=== PATIENT | female | born 1990 | race Caucasian/White ===

== ENCOUNTER 2017-03-12 12:00 | Emergency (ER) | payer SELFPAY ==
[2017-03-12 14:28] VITALS: BP 133/94
--- NOTE | 2017-03-12 14:29 | UC ---
Anderson Tuttle Angela, scribed for Jenifer Hale MD on 03/12/17 at 1404 . Throat Pain/Nasal Sloan HPI - HPI Summary HPI Summary: This pt is a 26 y/o female presenting to [facility] c/o sore throat for the last 2 -3 days. Hurts to swallow, hurts to speak. No sign fever / chills. No rash. No cough / sob. No GI issues reported. No known sick contacts. - History of Current Complaint Chief Complaint: UCRespiratory Stated Complaint: SORE THROAT Time Seen by Provider: 03/12/17 13:58 Hx Obtained From: Patient Hx Last Menstrual Period: 02/27/17 Onset/Duration: Lasting Days, Still Present Severity: Moderate Pain Intensity: 6 Pain Scale Used: 0-10 Numeric Cough: None Associated Signs & Symptoms: Negative: Fever - Allergies/Home Medications Allergies/Adverse Reactions: Allergies Allergy/AdvReac Type Severity Reaction Status Date / Time No Known Allergies Allergy Verified 03/12/17 12:36 PMH/Surg Hx/FS Hx/Imm Hx Previously Healthy: Yes Other Endocrine History: DENIES: diabetes Other Cardiovascular History: DENIES: HTN - Surgical History Surgical History: None - Family History Known Family History: Positive: Hypertension - Social History Alcohol Use: Rare Substance Use Type: None Smoking Status (MU): Never Smoked Tobacco Have You Smoked in the Last Year: No Review of Systems Constitutional: Negative Skin: Negative Eyes: Negative ENT: Sore Throat Respiratory: Negative Cardiovascular: Negative Gastrointestinal: Negative Genitourinary: Negative Motor: Negative Neurovascular: Negative Musculoskeletal: Negative Neurological: Negative Psychological: Negative Is Patient Immunocompromised?: No All Other Systems Reviewed And Are Negative: Yes Physical Exam Triage Information Reviewed: Yes Appearance: Well-Nourished Vital Signs: Initial Vital Signs Temp 98.9 F 03/12/17 12:31 Pulse 92 03/12/17 12:31 Resp 16 03/12/17 12:31 BP 138/86 03/12/17 12:31 Pulse Ox 99 03/12/17 12:31 Vital Signs Reviewed: Yes Eye Exam: Normal ENT Exam: Normal ENT: Positive: Pharyngeal erythema, TM dull, Tonsillar swelling Neck: Positive: Supple, Nontender. Negative: No Lymphadenopathy Respiratory: Positive: Chest non-tender, Lungs clear, Normal breath sounds, No respiratory distress, No accessory muscle use Cardiovascular Exam: Normal Cardiovascular: Positive: RRR, No Murmur, Pulses Normal, Brisk Capillary Refill Abdominal Exam: Normal Abdomen Description: Positive: Nontender, No Organomegaly, Soft Bowel Sounds: Positive: Present Musculoskeletal Exam: Normal Musculoskeletal: Positive: Strength Intact Neurological Exam: Normal - nonfocal, grossly intact Psychological Exam: Normal - conversing easily and appropriately Skin Exam: Normal - no visible or reported rash Throat Pain/Nasal Course/Dx - Course Course Of Treatment: Rapid strep test is positive. Tonsils very swollen. No stridor. Tongue not elevated. Rx - augmentin, also prednisone today and tomorrow am. D/w pt the importance of starting abx. Questions as posed answered to the best of my ability. - Differential Dx/Diagnosis Provider Diagnoses: Acute strep tonsillitis Discharge - Discharge Plan Condition: Stable Disposition: HOME Prescriptions: Amoxicillin/Clavulanate TAB* [Augmentin TAB 875*] 875 mg PO BID #20 tab predniSONE TAB* [Deltasone TAB*] 20 mg PO DAILY #4 tab Patient Education Materials: Strep Throat (ED), Tonsillitis (ED) Referrals: [facility] [Outside] No Primary Care Phys,NOPCP [Primary Care Provider] - Additional Instructions: Your blood pressure was elevated during today's visit, 138/86. Please follow up with your primary care provider in 1-2 weeks. Seek medical attention for worse or new problems in the meantime. The documentation as recorded by the Anderson amaro Angela accurately reflects the service I personally performed and the decisions made by me, Jenifer Hale MD.
== END 2017-03-12 14:36 | disposition home or self-care (01) ==
LOC: UCEAST 12:00
DX: J03.00 Acute streptococcal tonsillitis, unspecified (principal); R03.0 Elevated blood-pressure reading, without diagnosis of hypertension
CPT/HCPCS: 87651; 99212; G0463